=== PATIENT | male | born 1950 | race African-American/Black ===

== ENCOUNTER → 2017-04-14 | Outpatient (CLI) | payer MEDICARE ==
[~2017-04-14] MED LIST: AMLO5TAB2 PO; ASPI1TAB69 PO; ATOR40TA16 PO; CARV6.252 PO; NITR1SUB3 SL; TAMS5CAP PO
[2017-04-14 09:34] LABS: BLOOD, URINE SMALL (NEG); GLUCOSE,URINE NEG (NEG); KETONE, URINE NEG (NEG); NITRITE,URINE NEG (NEG); SQUAMOUS EPITHELIAL CELL URINE 1 /hpf (0-5); URINE COLOR YELLOW (YELLW/STRAW)
[2017-04-14 10:01] LABS: BICARBONATE 25.8 MEQ/L (21.0-32.0)
[2017-04-14 10:15] LABS: POTASSIUM 3.6 MEQ/L (3.5-5.1)
== END ==
LOC: PLAB 07:49
DX: I10 Essential (primary) hypertension (principal); N40.1 Benign prostatic hyperplasia with lower urinary tract symptoms; R31.9 Hematuria, unspecified
CPT/HCPCS: 36415; 80048; 81001; 84153

== ENCOUNTER 2017-12-21 12:38 | Emergency (ER) | payer MEDICARE, OTHER ==
[~2017-12-21] VITALS: Ht 170.2 cm; Wt 87.8 kg
[~2017-12-21 12:38] MED LIST changes: -ASPI1TAB69 PO; +ASPI81TA23 PO; +HYDR-3535 PO; +TRAM50TA PO
[2017-12-21 13:01] VITALS: BP 232/103; PULSE 66; RESP 18; TEMP 98; O2SAT 98
[2017-12-21] MEDS ORDERED: AMLO5TAB2 PO (13:53)
[2017-12-21] MEDS ORDERED: CARV6.252 PO (13:53)
[2017-12-21] MEDS ORDERED: ATOR40TA16 PO (13:53)
--- NOTE | 2017-12-21 13:53 | PD ---
HPI Chief Complaint: Hypertension Time Seen by Provider: 13:40 Travel History International Travel<30 days: No Contact w/Intl Traveler<30days: No Traveled to known affect area: No History of Present Illness HPI Patient is a 67-year-old male who was sent to the emergency room by his primary care doctor for high blood pressure. Patient reports that he has history of hypertension, he currently takes amlodipine 5 mg, carvedilol 6.25 mg twice a day , reports that for the past 2 months, he had run out of his blood pressure medications. Patient follow-up with a new primary care doctor today and because his blood pressure was so high, he was sent directly to the emergency room. His medications for his blood pressure medications were not filled. Patient reports no headache or dizziness, no vision changes, denies any chest pain or shortness of breath. Patient with no complaints at this time. PFSH Past Medical History Cancer: No Cardiovascular Problems: Yes (htn on meds, angioplasty ) High Cholesterol: Yes Endocrine: No Genitourinary: No Hypertension: Yes Immune Disorder: No Musculoskeletal: No Neurologic: No Psychiatric: No Reproductive: No Respiratory: No Social History Alcohol Use: Yes (OCCASSIONALLY) Tobacco Use: No (QUIT 45 YEARS AGO) Substance Use: No Allergies-Medications (Allergen,Severity, Reaction): Coded Allergies: No Known Allergies (Verified Adverse Reaction, Unknown, 12/21/17) Reported Meds & Prescriptions Reported Meds & Active Scripts Active Atorvastatin (Atorvastatin Calcium) 40 Mg Tab 40 Mg PO HS Carvedilol 6.25 Mg Tab 6.25 Mg PO BID Amlodipine (Amlodipine Besylate) 5 Mg Tab 5 Mg PO DAILY Review of Systems General / Constitutional: No: Fever Eyes: No: Visual changes HENT: No: Headaches Cardiovascular: No: Chest Pain or Discomfort Respiratory: No: Shortness of Breath Gastrointestinal: No: Abdominal Pain Genitourinary: No: Dysuria Musculoskeletal: No: Pain Skin: No Rash Neurologic: No: Weakness Psychiatric: No: Depression Endocrine: No: Polydipsia Hematologic/Lymphatic: No: Easy Bruising Physical Exam Narrative GENERAL: NAD SKIN: Focused skin assessment warm/dry. HEAD: Atraumatic. Normocephalic. EYES: Pupils equal and round. No scleral icterus. No injection or drainage. ENT: No nasal bleeding or discharge. Mucous membranes pink and moist. NECK: Trachea midline. No JVD. CARDIOVASCULAR: Regular rate and rhythm. No murmur appreciated. RESPIRATORY: No accessory muscle use. Clear to auscultation. Breath sounds equal bilaterally. GASTROINTESTINAL: Abdomen soft, non-tender, nondistended. Hepatic and splenic margins not palpable. MUSCULOSKELETAL: No obvious deformities. No clubbing. No cyanosis. No edema. NEUROLOGICAL: Awake and alert. No obvious cranial nerve deficits. Motor grossly within normal limits. Normal speech. PSYCHIATRIC: Appropriate mood and affect; insight and judgment normal. Data Data Last Documented VS Vital Signs Date Time Temp Pulse Resp B/P (MAP) Pulse Ox O2 Delivery O2 Flow Rate FiO2 12/21/17 14:35 180/80 (113) 12/21/17 13:01 98.0 66 18 98 Orders Orders Basic Metabolic Panel (Bmp) (12/21/17 13:46) Amlodipine (Norvasc) (12/21/17 14:00) Carvedilol (Coreg) (12/21/17 14:00) Electrocardiogram (12/21/17 ) Labs Laboratory Tests Test 12/21/17 14:30 [facility] Medical Decision Making Medical Screen Exam Complete: Yes Emergency Medical Condition: Yes Medical Record Reviewed: Yes Interpretation(s) EKG at 1356: NSR at 62bpm, nonspecific st and t wave changes - ekg comparable to previous ekg from 06/22/16 Vital Signs Date Time Temp Pulse Resp B/P (MAP) Pulse Ox O2 Delivery O2 Flow Rate FiO2 12/21/17 13:01 98.0 66 18 232/103 (146) 98 Differential Diagnosis Hypertensive emergency, medication noncompliance Narrative Course During the course of the patients emergency department visit, the patients history, examination, and differential diagnosis were reviewed with the patient. The patient was placed on a director of cardiac cath lab with oximetry and frequent blood pressure monitoring. The patient was initially provided his dose of amlodipine 5mg as well as carvedilol. Labs ordered to evaluate for end organ damage. Patient is completely asymptomatic with no complaints, I do plan to refill his antihypertensives as he does have history of hypertension and has been off his medications for the past 2 months. Patient understands that he will need to follow up with his pcp for bp rechecks. The patients laboratory studies were reviewed and remarkable for [-]. Diagnosis Primary Impression: Hypertension Qualified Codes: I10 - Essential (primary) hypertension Patient Instructions: General Instructions Additional Instructions: Please follow up with your primary care doctor in 1-2 days for blood pressure recheck Return to the ER if symptoms worsen or progress Return to the ER as needed Please take all medications as prescribed Med/Other Pt SpecificInfo: Prescription(s) given Scripts Atorvastatin (Atorvastatin) 40 Mg Tab 40 MG PO HS for Cholesterol Management, #30 TAB 0 Refills Prov: Alma Vick DO 12/21/17 Carvedilol (Carvedilol) 6.25 Mg Tab 6.25 MG PO BID, #60 TAB 0 Refills Prov: Alma Vick DO 12/21/17 Amlodipine (Amlodipine) 5 Mg Tab 5 MG PO DAILY for Blood Pressure Management, #30 TAB 0 Refills Prov: Alma Vick DO 12/21/17 Disposition: 01 DISCHARGE HOME Condition: Stable Alma Vick DO December 21, 2017 13:53
[2017-12-21] MEDS ORDERED: amLODIPine BESYLATE 5 MG TAB PO ONE (14:00)
[2017-12-21] MEDS ORDERED: CARVEDILOL 6.25 MG TAB PO ONE (14:00)
[2017-12-21 14:35] VITALS: BP 180/80
[2017-12-21 14:51] VITALS: BP 176/77; PULSE 67; RESP 18; O2SAT 98
[2017-12-21 15:05] LABS: CALCIUM 8.8 MG/DL (8.5-10.1)
[2017-12-21 15:06] LABS: BICARBONATE 28.1 MEQ/L (21.0-32.0)
[2017-12-21 15:09] LABS: CREATININE 1.1 MG/DL (0.60-1.30)
--- NOTE | 2017-12-22 14:19 | EKG ---
Date Performed: 12/21/2017 Time Performed: 13:56:23 PTAGE: 67 years EKG: Sinus rhythm LEFT VENTRICULAR HYPERTROPHY AND ST-T CHANGE ABNORMAL ECG PREVIOUS TRACING : 06/22/2016 16.28 DOCTOR: Manuel Bey Interpretating Date/Time 12/22/2017 14:18:51
== END 2017-12-21 15:27 | disposition home or self-care (01) ==
LOC: PHEFT 12:38
DX: I10 Essential (primary) hypertension (principal); E78.00 Pure hypercholesterolemia, unspecified; I51.7 Cardiomegaly; R94.31 Abnormal electrocardiogram [ECG] [EKG]; Z87.891 Personal history of nicotine dependence; Z79.899 Other long term (current) drug therapy
CPT/HCPCS: 80048; 93005; 99284